=== PATIENT | male | born 1960 | race Hispanic/Latino ===

== ENCOUNTER 2023-06-24 08:21 | Day surgery (SDC) | payer OTHER ==
[2023-06-22 09:37] VITALS: BP 116/79; PULSE 123; RESP 20
[2023-06-22 09:58] LABS: BASOPHILS # (AUTO) 0.03 K/uL (0.00-0.20); BASOPHILS % (AUTO) 0.5 % (0.0-5.0); EOSINOPHILS # (AUTO) 0.14 K/uL (0.00-0.70); EOSINOPHILS % (AUTO) 2.3 % (0.0-8.0); HEMATOCRIT 35.4 % (42-54); IMMATURE GRANULOCYTE ABSOLUTE 0.02 K/uL (0-1); LYMPHOCYTES % (AUTO) 32.1 % (21.0-51.0); MEAN CORPUSCULAR HEMOGLOBIN 29.2 pg (27.0-33.0); MEAN CORPUSCULAR HGB CONC 33.3 g/dL (32.0-36.0); MEAN CORPUSCULAR VOLUME 87.6 fL (79-99); MONOCYTES # (AUTO) 0.5 K/uL (0.1-1.0); MONOCYTES % (AUTO) 8.2 % (3.0-13.0); NEUTROPHILS # (AUTO) 3.4 K/uL (1.8-7.7); NEUTROPHILS % (AUTO) 56.6 % (40.0-77.0); PLATELET COUNT (AUTO) 207 K/uL (130-400); RED BLOOD CELL COUNT(AUTO) 4.04 MIL/uL (4.50-6.20); RED CELL DISTRIBUTION WIDTH 14.6 % (11.0-15.5); WHITE BLOOD COUNT (AUTO) 6.1 K/uL (4.8-10.8)
[2023-06-22 10:05] LABS: CREATININE 1.4 mg/dL (0.5-1.5); POTASSIUM 4.3 mmol/L (3.5-5.1)
[2023-06-22 10:14] LABS: INR 1.18 (0.85-1.15); PROTHROMBIN TIME 13.5 SEC (9.6-11.6)
[2023-06-22 10:15] LABS: PARTIAL THROMBOPLASTIN TIME 36.9 SEC (26.3-35.5)
[~2023-06-24] VITALS: Ht 180.3 cm; Wt 100.5 kg
[2023-06-24] VITALS (8 sets, daily range): BP systolic 106–124; BP diastolic 53–70; PULSE 53–92; RESP 12–17
[~2023-06-24 08:21] MED LIST: DAPA10TA PO; FURO20TA4 PO; GABA-529 PO; LISI10TA24 PO; METF-446 PO; METO-409 PO; RIVA20TA PO; ROSU20TA73 PO; SEMA3TAB4 PO; VERA120T92 PO
[2023-06-24] MEDS ORDERED: 0.9%NACL 1000ML 1,000 ML IV ONE (09:18)
[2023-06-24] MEDS ORDERED: LIDOCAINE HCL 1% MDV 50ML VIAL ONE (11:51)
[2023-06-24] MEDS ORDERED: HEPARIN 10,000 UNIT/10ML (1,000 UNIT/ML) VIAL ONE (11:52)
[2023-06-24] MEDS ORDERED: MEPERIDINE-PF 25 MG/ML SYG ONE ×2 (11:52→12:10)
[2023-06-24] MEDS ORDERED: MIDAZOLAM HCL 1 MG/ML 2ML VIAL ONE ×2 (11:52→12:10)
[2023-06-24] MEDS ORDERED: APIXABAN 2.5 MG TABLET PO ONE (15:01)
[2023-06-24] MEDS ORDERED: APIXABAN 5 MG TABLET PO ONE (20:00)
== END 2023-06-24 16:50 | disposition home or self-care (01) ==
LOC: DAH 08:21
PROVIDERS: ATTEND Internal Medicine Cardiovascular Disease
DX: I48.3 Typical atrial flutter (principal); I10 Essential (primary) hypertension; E78.5 Hyperlipidemia, unspecified; E11.9 Type 2 diabetes mellitus without complications; D64.9 Anemia, unspecified; E66.9 Obesity, unspecified; I25.2 Old myocardial infarction; Z79.01 Long term (current) use of anticoagulants; Z79.899 Other long term (current) drug therapy; Z79.84 Long term (current) use of oral hypoglycemic drugs; Z95.5 Presence of coronary angioplasty implant and graft; Z98.890 Other specified postprocedural states; Z68.32 Body mass index [BMI] 32.0-32.9, adult
CPT/HCPCS: 80048; 85025; 85610; 85730; 36415; 93005 ×2; 93653; 82948 ×2; C1894 ×2; A4649 ×2; C1732; C1730; J7030; J1644 ×2; J2250 ×2; J2175 ×2; J3490; A4215; A4222; A4221; A4663; A4216; A4606; A4223 ×3; 99156; 99157